=== PATIENT | female | born 1985 | race Caucasian/White ===

== ENCOUNTER 2024-05-25 11:10 | Emergency (ER) | payer OTHER, SELFPAY ==
[2024-05-25 11:13] VITALS: BP 160/110; PULSE 95; TEMP 36.8; O2SAT 100; BMI 25.3
--- NOTE | 2024-05-26 07:06 | ED_ITS ---
HPI HPI - General Adult General Chief complaint: Abdominal Pain Stated complaint: abdominal pain Source: patient Mode of arrival: walk-in Limitations: no limitations Related Data Home Medications ?Medication ?Instructions ?Recorded ?Confirmed alprazolam 0.5 mg tablet 0.5 mg PO BID PRN anxiety 05/25/24 05/25/24 promethazine 25 mg rectal 25 mg AR Q6H PRN nausea 05/25/24 05/25/24 suppository (Promethegan) tizanidine 4 mg tablet 4 mg PO TID 05/25/24 05/25/24 zolpidem 10 mg tablet (Ambien) 10 mg PO .hs 05/25/24 05/25/24 Previous Rx's ?Medication ?Instructions ?Recorded ibuprofen 800 mg tablet 800 mg PO Q8H PRN pain 14 days #40 05/25/24 tabs oxycodone-acetaminophen 5 mg-325 1 tab PO Q6H PRN pain 7 days #28 05/25/24 mg tablet (Percocet) tabs Allergies Allergy/AdvReac Type Severity Reaction Status Date / Time amoxicillin AdvReac Intermediate Unknown Verified 05/25/24 15:14 diphenhydramine (From AdvReac Intermediate Unknown Verified 05/25/24 15:14 Benadryl) levofloxacin (From Levaquin) AdvReac Intermediate Unknown Verified 05/25/24 15:14 metoclopramide (From Reglan) AdvReac Intermediate Unknown Verified 05/25/24 15:14 nalbuphine (From Nubain) AdvReac Intermediate hives Verified 05/25/24 15:14 prochlorperazine (From AdvReac Intermediate Unknown Verified 05/25/24 15:14 Compazine) tramadol AdvReac Intermediate hives and Verified 05/25/24 15:14 rash vancomycin AdvReac Intermediate Unknown Verified 05/25/24 15:14 ketorolac (From Toradol) AdvReac Mild hives Verified 05/25/24 15:14 meperidine (From Demerol) AdvReac Mild Hives Verified 05/25/24 15:14 Opioid HPI Opioid Management Most Recent Opioid Data: Last Pain Scale 8 05/26/24 06:23 05/26/24 Last Pain Assessment 05/26/24 06:00 Last MAR Pain Assessment 05/26/24 06:23 Last ORT Total Score 1 05/25/24 19:46 05/25/24 Last ORT Risk Category Low Risk 05/25/24 19:46 05/25/24 Ur Phencyclidine Scrn Negative (NEGATIVE) 05/25/24 14:31 05/08 11/29 [facility] Medical History (Updated 05/25/24 @ 19:35 by Myra La RN) Difficult intravenous access ?Z78.9 - Other specified health status (ICD-10) Varicella zoster ?B02.9 - Zoster without complications (ICD-10) Pancreatitis ?K85.90 - Acute pancreatitis without necrosis or infection, unspecified (ICD- 10) Ovarian cyst ?N83.209 - Unspecified ovarian cyst, unspecified side (ICD-10) Hypertension ?I10 - Essential (primary) hypertension (ICD-10) IBS (irritable bowel syndrome) ?K58.9 - Irritable bowel syndrome, unspecified (ICD-10) COVID-19 ?U07.1 - COVID-19 (ICD-10) Breast lump ?N63.0 - Unspecified lump in unspecified breast (ICD-10) Vitamin D deficiency ?E55.9 - Vitamin D deficiency, unspecified (ICD-10) Stress at home ?F43.9 - Reaction to severe stress, unspecified (ICD-10) Restless legs ?G25.81 - Restless legs syndrome (ICD-10) Plantar warts ?B07.0 - Plantar wart (ICD-10) Panic attacks ?F41.0 - Panic disorder [episodic paroxysmal anxiety] (ICD-10) Opioid abuse ?F11.10 - Opioid abuse, uncomplicated (ICD-10) Internal derangement of right knee ?M23.91 - Unspecified internal derangement of right knee (ICD-10) Internal derangement of left knee ?M23.92 - Unspecified internal derangement of left knee (ICD-10) Insomnia ?G47.00 - Insomnia, unspecified (ICD-10) GERD (gastroesophageal reflux disease) ?K21.9 - Gastro-esophageal reflux disease without esophagitis (ICD-10) Fear of flying ?F40.243 - Fear of flying (ICD-10) Epiploic appendagitis ?K63.89 - Other specified diseases of intestine (ICD-10) Depressive disorder ?F32.A - Depression, unspecified (ICD-10) Chronic pancreatitis ?K86.1 - Other chronic pancreatitis (ICD-10) Chronic headache ?R51.9 - Headache, unspecified (ICD-10) ?G89.29 - Other chronic pain (ICD-10) Chronic fatigue ?R53.82 - Chronic fatigue, unspecified (ICD-10) Chondromalacia of left patella ?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 - Chondromalacia patellae, left knee (ICD-10) Anxiety ?F41.9 - Anxiety disorder, unspecified (ICD-10) Abnormal liver function tests ?R79.89 - Other specified abnormal findings of blood chemistry (ICD-10) Surgical History (Updated 05/25/24 @ 14:30 by Myra La, CELSO) Hx of cholecystectomy ?Z90.49 - Acquired absence of other specified parts of digestive tract (ICD- 10) History of hysterectomy ?Z90.710 - Acquired absence of both cervix and uterus (ICD-10) Family History (Updated 05/25/24 @ 14:33 by Myra La, CELSO) Other Breast cancer Colon cancer Drug abuse FH: mental illness Family history of cancer Family history of diabetes mellitus Family history of hypertension Family history of stroke Ovarian cancer Raynaud disease Thyroid cancer Social History (Updated 05/25/24 @ 15:11 by Myra La, CELSO) Within the past year, how often did you have a drink containing alcohol: never Score interpretation: A score less than 3 is consistent with normal alcohol consumption. Do you use any of these nicotine containing products: vaping products Second hand tobacco smoke exposure: No Previous occupational history: unemployed Known occupational exposures/hazards: No Highest level of school completed/degree received: Associate degree: occupational, technical, vocational program Little interest or pleasure in doing things: not at all Feeling down, depressed, or hopeless: not at all Exam Constitutional Vital Signs, click to edit/add: Last Vital Signs Temp 98.2 F 05/25/24 11:13 Pulse 95 H 05/25/24 11:13 Resp 18 05/25/24 11:13 BP 160/110 H 05/25/24 11:13 Pulse Ox 100 05/25/24 11:13 Course Vital Signs Vital signs: Vital Signs Temperature 98.2 F 05/25/24 11:13 Pulse Rate 95 H 05/25/24 11:13 Respiratory Rate 18 05/25/24 11:13 Blood Pressure 160/110 H 05/25/24 11:13 Pulse Oximetry 100 05/25/24 11:13 Temperature 98.2 F 05/25/24 11:13 Pulse Rate 95 H 05/25/24 11:13 Respiratory Rate 18 05/25/24 11:13 Blood Pressure 160/110 H 05/25/24 11:13 Pulse Oximetry 100 05/25/24 11:13 Medical Decision Making MDM Narrative Medical decision making narrative: Patient left without being seen Discharge Plan Discharge Patient Disposition: Left Without Being Seen Discharge Date/Time: 05/25/24 13:00
== END 2024-05-25 13:00 | disposition left against medical advice (07) ==
PROVIDERS: Emergency Provider Student in an Organized Health Care Education/Training Program; PCP Nurse Practitioner Family
DX: Z53.21 Procedure and treatment not carried out due to patient leaving prior to being seen by health care provider (principal)

== ENCOUNTER 2024-05-25 19:30 | Observation (INO) | payer OTHER, SELFPAY ==
[2024-05-25] VITALS (20 sets, daily range): BP systolic 161–189; BP diastolic 103–133; PULSE 75–139; TEMP 36.4–36.9; O2SAT 95–100; BMI 22.8
--- NOTE | 2024-05-25 14:48 | ECG_ITS ---
[facility] Test Date: 2024-05-25 Pat Name: JANES BRITT Department: Room: - Gender: Female Tow Picker: : [id number] Requested By: ARTHUR LOPEZ Order Number: [id number] Reading MD: CALI ERVIN Measurements Intervals [place] Rate: 88 P: 7 DE: 144 QRS: 34 QRSD: 81 T: 8 QT: 347 QTc: 421 Interpretive Statements SINUS RHYTHM WITH SINUS ARRHYTHMIA WARNING: DATA QUALITY MAY AFFECT INTERPRETATION Compared to ECG 10/24/2020 19:51:43 Sinus tachycardia no longer present ST (T wave) deviation no longer present Electronically Signed On 05-26-2024 7:11:20 EST by CALI ERVIN
[2024-05-25 14:49] LABS: Basophils Percent Auto 0.5 % (0.2-2.0); Eosinophils Absolute Auto 0.3 10^3/uL (0.0-0.7); Hematocrit 44.5 % (36.0-48.0); Hemoglobin 14.9 g/dL (12.0-16.0); Immature Granulocytes Abs Auto 0.01 10^3/uL (0.00-0.03); Immature Granulocytes Pct Auto 0.2 % (0.0-0.5); Lymphocytes Absolute Auto 1.7 10^3/uL (1.2-3.8); Lymphocytes Percent Auto 29.6 % (20.5-60.0); Mean Corpuscular HGB Conc 33.5 g/dL (29.9-35.2); Mean Corpuscular Hemoglobin 31.6 pg (26.7-34.0); Mean Corpuscular Volume 94.5 fL (81.0-99.0); Mean Platelet Volume 9.6 fL (9.5-13.5); Monocytes Absolute Auto 0.4 10^3/uL (0.3-0.8); Monocytes Percent Auto 6.8 % (1.7-12.0); Neutrophils Absolute Auto 3.2 10^3/uL (1.4-6.5); Neutrophils Percent Auto 57.9 % (43.0-75.0); Platelet Count 401 10^3/uL (150-450); Red Blood Count 4.71 10^6/uL (4.20-5.40); Red Cell Distribution Width 13.6 % (11.0-15.0); White Blood Count 5.6 10^3/uL (4.0-11.0)
[2024-05-25 14:56] LABS: Amphetamine Screen Urine NEGATIVE (NEGATIVE); Barbiturates Screen Urine NEGATIVE (NEGATIVE); Benzodiazepines Screen Urine POSITIVE (NEGATIVE); Buprenorphine Screen Urine NEGATIVE (NEGATIVE); Cannabinoid Screen Urine NEGATIVE (NEGATIVE); Cocaine Screen Urine NEGATIVE (NEGATIVE); Methadone Screen Urine NEGATIVE (NEGATIVE); Methamphetamines Screen Urine NEGATIVE (NEGATIVE); Opiate Screen Urine NEGATIVE (NEGATIVE); Oxycodone Screen Urine POSITIVE (NEGATIVE); Phencyclidine Screen Urine NEGATIVE (NEGATIVE); Tricyclic Antidepressant Urine NEGATIVE (NEGATIVE)
[2024-05-25 15:17] LABS: HCG Quantitative 9 mIU/mL
[2024-05-25 15:19] LABS: Anion Gap 13.8; Chloride 106 mmol/L (98-107); Glucose 108 mg/dL (74-106); Potassium 3.8 mmol/L (3.5-5.1); Sodium 141 mmol/L (136-145)
[2024-05-25 15:20] LABS: BUN Creatinine Ratio 7.4; Calcium 10.1 mg/dL (8.5-10.1); Estimated GFR (African America >60 (>=60 mL/min/1.73m^2); Estimated GFR (Non-African Ame >60 (>=60 mL/min/1.73m^2)
[2024-05-25] MEDS: LACTATED RINGER'S SOLUTION 1,000 ML 50 ML IV (17:06)
--- NOTE | 2024-05-25 17:48 | PC.NURSE ---
1630- Attempted numerous time to place Peripheral IV without success. Patient tolerated attempts well. Jt Rae to attempt from [facility]. (1703) Right upper arm midline placed per Jt Rae x1 attempt without difficulty. See line placement charting.
--- NOTE | 2024-05-25 17:57 | P.ON_ITS ---
Brief Operative Note Date of procedure: 05/25/24 Pre-op diagnosis general: pelvic pain Post-op diagnosis: same as pre-op Procedure: NAME OF PROCEDURE: [diagnostic laparoscopy ] PROCEDURE: The patient was taken back to the Operating Room where she was placed in dorsal lithotomy position after given general anesthesia. The patient was prepped and draped in normal sterile fashion. A sponge stick was placed into the patient's vagina. Attention was turned to the patient's abdomen, where a small umbilical incision was made. The fascia was tented using Lucy clamps and the fascia was entered sharply. Confirmation of intraabdominal placement of the 10 mm port was confirmed under direct visualization using a laparoscope. The patient's abdomen was then insufflated using CO2 gas with approximately 4 liters. A second port was placed left laterally, this was done under direct visualization with a 5 mm port. Survey of the patient's abdomen demonstrated normal liver and gallbladder. Survey of the patient's pelvic anatomy demonstrated absent uterus, tubes and ovaries. No endometrial implants could be noted, no evidence of any pelvic disease was seen, normal appearing pelvic cavity. All instruments were removed from the patient's abdomen. The patient's abdomen was deinsufflated of CO2 gas. The patient tolerated the procedure well. Sponge stick was removed from the patient's vagina. The patient's infraumbilical fascia was closed using #0 Vicryl on a GI needle. The patient's skin was closed laterally and infraumbilically using 4-0 Vicryl. The patient tolerated the procedure well. Sponge, lap and needle counts were correct x 2. The patient was taken to Recovery Room in stable condition. Anesthesia: RADHAA Surgeon: Jad Butts Customer Support Associate: Filomena Hernandez Estimated blood loss (mL): 5 Pathology: none sent Condition: stable Disposition: PACU Urinary Catheter Management Urinary Catheter Management Urethral: Cath placed during this visit: no
[2024-05-25] MEDS: LACTATED RINGER'S SOLUTION 1,000 ML 150 ML IV (18:16)
--- NOTE | 2024-05-25 18:31 | PC.NURSE ---
Dr. Sanz aware of BP and is medicating.
[2024-05-25] MEDS: HYDROMORPHONE HCL 0.5 MG/0.5 ML SYRINGE IV (18:51)
[2024-05-25] MEDS: HYDROMORPHONE HCL 1 MG/ML CARTRIDGE IVP ×2 (21:01→23:51)
[2024-05-25] MEDS: LORAZEPAM 2 MG/ML VIAL 0.5 MG IV (21:03)
[2024-05-25] MEDS: LABETALOL HCL 20 MG/4 ML SYRINGE 10 MG IVP (21:05)
[2024-05-25] MEDS: ZOLPIDEM TARTRATE 10 MG TABLET PO (22:46)
[2024-05-25] MEDS: TIZANIDINE HCL 4 MG TABLET PO (22:46)
[2024-05-25] MEDS: OXYCODONE HCL/ACETAMINOPHEN 5MG/325MG 2 TAB PO (22:46)
[2024-05-25] MEDS: HYDRALAZINE HCL 20 MG/ML VIAL 10 MG IVP (23:31)
[2024-05-25] MEDS: PROMETHAZINE HCL 25 MG in 0.9 % SODIUM CHLORIDE 50 ML 204 MG IV (23:51)
[2024-05-26] VITALS (9 sets, daily range): BP systolic 90–101; BP diastolic 52–65; PULSE 63–110; TEMP 36.8; O2SAT 94–96
[2024-05-26] MEDS: TIZANIDINE HCL 4 MG TABLET PO (06:23)
[2024-05-26] MEDS: HYDROMORPHONE HCL 1 MG/ML CARTRIDGE IVP (06:23)
[2024-05-26 07:07] LABS: Hematocrit 36.6 % (36.0-48.0); Hemoglobin 12.2 g/dL (12.0-16.0); Mean Corpuscular HGB Conc 33.3 g/dL (29.9-35.2); Mean Corpuscular Hemoglobin 31.5 pg (26.7-34.0); Mean Corpuscular Volume 94.6 fL (81.0-99.0); Mean Platelet Volume 9.3 fL (9.5-13.5); Platelet Count 387 10^3/uL (150-450); Red Blood Count 3.87 10^6/uL (4.20-5.40); Red Cell Distribution Width 13.9 % (11.0-15.0)
[2024-05-26 07:22] LABS: Alanine Aminotransferase 26 U/L (14-59); Albumin Globulin Ratio 1.1; Albumin Level 3.7 g/dL (3.4-5.0); Alkaline Phosphatase 106 U/L (46-116); Anion Gap 18.6; Aspartate Amino Transferase 25 U/L (15-37); BUN Creatinine Ratio 8.7; Bilirubin Total 0.8 mg/dL (0.2-1.0); Calcium 9.5 mg/dL (8.5-10.1); Carbon Dioxide 24.5 mmol/L (21.0-32.0); Chloride 102 mmol/L (98-107); Estimated GFR (African America >60 (>=60 mL/min/1.73m^2); Estimated GFR (Non-African Ame 60 (>=60 mL/min/1.73m^2); Globulin 3.4 g/dL; Glucose 116 mg/dL (74-106); Potassium 4.1 mmol/L (3.5-5.1); Sodium 141 mmol/L (136-145); Total Protein 7.1 g/dL (6.4-8.2)
[2024-05-26 07:38] LABS: Monocytes Absolute Manual 1.12 10^3/uL (0.30-0.80); Segmented Neut Absolute Manual 5.28 10^3/uL (1.4-6.5)
--- NOTE | 2024-05-26 09:55 | P.GYNPN_ITS ---
[employer] CONSULTANT - PN: Subj Post-Op Subjective: patient reports feeling better and patient has no complaints Exam Constitutional Vital Signs, click to edit/add: Last Vital Signs Temp 98.3 F 05/26/24 08:25 Pulse 68 05/26/24 08:25 Resp 16 05/26/24 08:25 BP 90/52 05/26/24 08:25 Pulse Ox 95 05/26/24 08:25 O2 Del Method Room Air 05/26/24 08:25 Documenting provider has reviewed patient's vital signs: yes Common normals: no apparent distress Cardio Common normals: regular rate and regular rhythm GI Common normals: Normal to inspection, nondistended, normoactive bowel sounds present Extremity Common normals: no clubbing, cyanosis or edema and no calf tenderness Results Labs Labs: Short CBC 05/25/24 05/26/24 Range/Units 14:34 06:33 WBC 5.6 8.0 (4.0-11.0) 10^3/uL Hgb 14.9 12.2 (12.0-16.0) g/dL Hct 44.5 36.6 (36.0-48.0) % Plt Count 401 387 (150-450) 10^3/uL BMP 05/25/24 05/26/24 14:34 06:33 Sodium 141 141 Potassium 3.8 4.1 Chloride 106 102 Carbon Dioxide 25.0 24.5 BUN 6.0 L 9.0 Creatinine 0.81 1.04 H Glucose 108 H 116 H Calcium 10.1 9.5 Liver Function 05/26/24 Range/Units 06:33 Total Bilirubin 0.8 (0.2-1.0) mg/dL AST 25 (15-37) U/L ALT 26 (14-59) U/L Alkaline Phosphatase 106 (46-116) U/L Albumin 3.7 (3.4-5.0) g/dL [employer] CONSULTANT - A/P Assessment and Plan (1) Elevated BP without diagnosis of hypertension: Postoperative Procedures: Procedures Operation Date: 05/25/24 15:00 Actual Procedure Side Surgeon p Diagnostic laparoscopy Not Applicable Jad Butts DO Postoperative day: 1 Postoperative status EN[employer] PL[employer]ING CONSULTANT: doing well Post-operative plan EN[employer] PL[employer] CONSULTANT: routine post-op care and discharge Fall Risk Details Page fall scale risk level: Low Fall Risk Current medications: Current Medications Al Hydroxide/Mg Hydroxide (Magnesium Hydroxide 2,400 Mg/10 Ml Oral.Susp) 2,400 mg PO ONCE ONE Stop: 05/26/24 09:53 Alprazolam (Alprazolam 0.5 Mg Tablet) 0.5 mg PO BID PRN PRN Reason: anxiety Hydralazine HCl (Hydralazine Hcl 20 Mg/Ml Vial) 10 mg IVP Q4H PRN PRN Reason: Hypertension Last Admin: 05/25/24 23:31 Dose: 10 mg Hydromorphone HCl (Hydromorphone Hcl 0.5 Mg/0.5 Ml Syringe) 0.5 mg IVP Q6H PRN PRN Reason: Breakthrough Pain Oxycodone/Acetaminophen (Oxycodone Hcl/Acetaminophen 5mg/325mg) 2 tab PO Q4H PRN PRN Reason: Pain 6-10 Last Admin: 05/25/24 22:46 Dose: 2 tab Promethazine HCl (Promethazine Hcl 25 Mg Supp.Rect) 25 mg DC Q6H PRN PRN Reason: nausea, vomiting Tizanidine HCl (Tizanidine Hcl 4 Mg Tablet) 4 mg PO TID [facility] Last Admin: 05/26/24 06:23 Dose: 4 mg Zolpidem Tartrate (Zolpidem Tartrate 10 Mg Tablet) 10 mg PO QHS [facility] Last Admin: 05/25/24 22:46 Dose: 10 mg Time Spent With Patient Time: Total time spent is greater than 50% in coordination of care (as documented) at patient's floor/unit and/or counseling patient: Time with patient: less than 15 minutes Urinary Catheter Management Urinary Catheter Management Urethral: Cath placed during this visit: no
[2024-05-26] MEDS: ONDANSETRON PF 4 MG/2 ML VIAL IV (10:26)
[2024-05-26] MEDS: OXYCODONE HCL/ACETAMINOPHEN 5MG/325MG 2 TAB PO (10:26)
[2024-05-26] MEDS: MAGNESIUM HYDROXIDE 2,400 MG/10 ML ORAL.SUSP 2400 MG PO (10:26)
--- NOTE | 2024-05-26 10:37 | PM.HP ---
HPI H&P: HPI History of Present Illness Chief complaint: Poorly controlled blood pressure Narrative: HPI and Hospital course 38-year-old female with no prior history of essential hypertension had diagnostic laparoscopy for ongoing/unexplained pelvic pain. Postoperatively, patient had poorly controlled anxiety, pain along with blood pressure that met the criteria for hypertensive urgency with blood pressure as high as 180/120. Patient was admitted for observation postoperatively to treat her blood pressure, pain and anxiety. She received combination of IV hydralazine and labetalol as needed. Her postoperative pain was treated with combination of oral oxy and IV Dilaudid. She was seen earlier today was still complaining of mild abdominal pain along with nausea. However her blood pressure was well-controlled. She denies any prior history of essential hypertension. She was seen by WAREHOUSE INSULATION WORKER and is stable for discharge from surgical point of view. Discussed with patient that she should monitor her blood pressure at home and bring her blood pressure log to her PCP to determine if she has underlying/undiagnosed essential hypertension. Patient is medically stable for discharge. She will need to follow-up with PCP and WAREHOUSE INSULATION WORKER. Opioid HPI Opioid Management Most Recent Pain and Opioid Data: Last Pain Scale 7 05/26/24 10:26 05/26/24 Last Pain Assessment 05/26/24 10:09 Last MAR Pain Assessment 05/26/24 10:26 Last ORT Total Score 1 05/25/24 19:46 05/25/24 Last ORT Risk Category Low Risk 05/25/24 19:46 05/25/24 Ur Phencyclidine Scrn Negative (NEGATIVE) 05/25/24 14:31 05/25/24 Review of Systems ROS Status of ROS 10 or more systems reviewed and unremarkable except as noted in history and below [facility] Medical History (Updated 05/26/24 @ 10:44 by Shaikh Korina MD) Difficult intravenous access ?Z78.9 - Other specified health status (ICD-10) Varicella zoster ?B02.9 - Zoster without complications (ICD-10) Pancreatitis ?K85.90 - Acute pancreatitis without necrosis or infection, unspecified (ICD-10) Ovarian cyst ?N83.209 - Unspecified ovarian cyst, unspecified side (ICD-10) Hypertension ?I10 - Essential (primary) hypertension (ICD-10) IBS (irritable bowel syndrome) ?K58.9 - Irritable bowel syndrome, unspecified (ICD-10) COVID-19 ?U07.1 - COVID-19 (ICD-10) Breast lump ?N63.0 - Unspecified lump in unspecified breast (ICD-10) Vitamin D deficiency ?E55.9 - Vitamin D deficiency, unspecified (ICD-10) Stress at home ?F43.9 - Reaction to severe stress, unspecified (ICD-10) Restless legs ?G25.81 - Restless legs syndrome (ICD-10) Plantar warts ?B07.0 - Plantar wart (ICD-10) Panic attacks ?F41.0 - Panic disorder [episodic paroxysmal anxiety] (ICD-10) Opioid abuse ?F11.10 - Opioid abuse, uncomplicated (ICD-10) Internal derangement of right knee ?M23.91 - Unspecified internal derangement of right knee (ICD-10) Internal derangement of left knee ?M23.92 - Unspecified internal derangement of left knee (ICD-10) Insomnia ?G47.00 - Insomnia, unspecified (ICD-10) GERD (gastroesophageal reflux disease) ?K21.9 - Gastro-esophageal reflux disease without esophagitis (ICD-10) Fear of flying ?F40.243 - Fear of flying (ICD-10) Epiploic appendagitis ?K63.89 - Other specified diseases of intestine (ICD-10) Depressive disorder ?F32.A - Depression, unspecified (ICD-10) Chronic pancreatitis ?K86.1 - Other chronic pancreatitis (ICD-10) Chronic headache ?R51.9 - Headache, unspecified (ICD-10) ?G89.29 - Other chronic pain (ICD-10) Chronic fatigue ?R53.82 - Chronic fatigue, unspecified (ICD-10) Chondromalacia of left patella ?M22.42 - Chondromalacia patellae, left knee (ICD-10) Anxiety ?F41.9 - Anxiety disorder, unspecified (ICD-10) Abnormal liver function tests ?R79.89 - Other specified abnormal findings of blood chemistry (ICD-10) Surgical History (Updated 05/25/24 @ 14:30 by Myra La RN) Hx of cholecystectomy ?Z90.49 - Acquired absence of other specified parts of digestive tract (ICD-10) History of hysterectomy ?Z90.710 - Acquired absence of both cervix and uterus (ICD-10) Family History (Updated 05/25/24 @ 14:33 by Myar La RN) Other Breast cancer Colon cancer Drug abuse FH: mental illness Family history of cancer Family history of diabetes mellitus Family history of hypertension Family history of stroke Ovarian cancer Raynaud disease Thyroid cancer Social History (Updated 05/25/24 @ 15:11 by Myra La, RN) Within the past year, how often did you have a drink containing alcohol: never Score interpretation: A score less than 3 is consistent with normal alcohol consumption. Do you use any of these nicotine containing products: vaping products Second hand tobacco smoke exposure: No Previous occupational history: unemployed Known occupational exposures/hazards: No Highest level of school completed/degree received: Associate degree: occupational, technical, vocational program Little interest or pleasure in doing things: not at all Feeling down, depressed, or hopeless: not at all Meds Home Medications and Allergies Home Medications ?Medication ?Instructions ?Recorded ?Confirmed ?Type alprazolam 0.5 mg tablet 0.5 mg PO BID PRN anxiety 05/25/24 05/25/24 History ibuprofen 800 mg tablet 800 mg PO Q8H PRN pain 14 days #40 05/25/24 Rx tabs oxycodone-acetaminophen 5 mg-325 1 tab PO Q6H PRN pain 7 days #28 05/25/24 Rx mg tablet (Percocet) tabs promethazine 25 mg rectal 25 mg [place] Q6H PRN nausea 05/25/24 05/25/24 History suppository (Promethegan) tizanidine 4 mg tablet 4 mg PO TID 05/25/24 05/25/24 History zolpidem 10 mg tablet (Ambien) 10 mg PO .hs 05/25/24 05/25/24 History bisacodyl 10 mg rectal suppository 10 mg [place] DAILY PRN constipation #4 05/26/24 Rx (Dulcolax (bisacodyl)) ea Allergies Allergy/AdvReac Type Severity Reaction Status Date / Time amoxicillin AdvReac Intermediate Unknown Verified 05/25/24 15:14 diphenhydramine (From AdvReac Intermediate Unknown Verified 05/25/24 15:14 Benadryl) levofloxacin (From Levaquin) AdvReac Intermediate Unknown Verified 05/25/24 15:14 metoclopramide (From Reglan) AdvReac Intermediate Unknown Verified 05/25/24 15:14 nalbuphine (From Nubain) AdvReac Intermediate hives Verified 05/25/24 15:14 prochlorperazine (From AdvReac Intermediate Unknown Verified 05/25/24 15:14 Compazine) tramadol AdvReac Intermediate hives and Verified 05/25/24 15:14 rash vancomycin AdvReac Intermediate Unknown Verified 05/25/24 15:14 ketorolac (From Toradol) AdvReac Mild hives Verified 05/25/24 15:14 meperidine (From Demerol) AdvReac Mild Hives Verified 05/25/24 15:14 Exam Constitutional Vital Signs, click to edit/add: Last Vital Signs Temp 98.3 F 05/26/24 08:25 Pulse 69 05/26/24 10:00 Resp 16 05/26/24 08:25 BP 90/52 05/26/24 08:25 Pulse Ox 96 05/26/24 10:00 O2 Del Method Room Air 05/26/24 08:25 Documenting provider has reviewed patient's vital signs: yes Common normals: no apparent distress and oriented x3 General appearance: cooperative Respiratory Common normals: normal respiratory effort and clear to auscultation bilaterally Effort & inspection: able to speak in complete sentences Auscultation: clear to auscultation bilaterally Cardio Common normals: regular rate, S1 normal heart sound and S2 normal heart sound Rate: regular rate Heart sounds: S1 normal and S2 normal Neuro Common normals: oriented x3, moves all extremities and no focal motor deficits Psych Common normals: mental status grossly normal, denies hallucinations, denies homicidal ideation and denies suicidal ideation Results Labs Labs: Short CBC 05/25/24 05/26/24 Range/Units 14:34 06:33 WBC 5.6 8.0 (4.0-11.0) 10^3/uL Hgb 14.9 12.2 (12.0-16.0) g/dL Hct 44.5 36.6 (36.0-48.0) % Plt Count 401 387 (150-450) 10^3/uL BMP 05/25/24 05/26/24 14:34 06:33 Sodium 141 141 Potassium 3.8 4.1 Chloride 106 102 Carbon Dioxide 25.0 24.5 BUN 6.0 L 9.0 Creatinine 0.81 1.04 H Glucose 108 H 116 H Calcium 10.1 9.5 Liver Function 05/26/24 Range/Units 06:33 Total Bilirubin 0.8 (0.2-1.0) mg/dL AST 25 (15-37) U/L ALT 26 (14-59) U/L Alkaline Phosphatase 106 (46-116) U/L Albumin 3.7 (3.4-5.0) g/dL Assessment and Plan Assessment and Plan (1) Hypertensive urgency: (2) Abdominal pain: Qualifiers: Abdominal location: generalized Qualified Code(s): R10.84 - Generalized abdominal pain (3) Post-operative pain: Plan Patient's blood pressure is now at goal. Her pain is reasonably controlled. It seems like her pelvic pain was secondary to constipation. Patient started on bowel regimen to help with constipation. Patient is medically stable for discharge and will need follow-up with PCP and WAREHOUSE INSULATION WORKER as outpatient. Urinary Catheter Management Urinary Catheter Management Urethral: Cath placed during this visit: no
--- NOTE | 2024-05-27 12:50 | CM.DCFOLLOWU ---
1st attempt 05/27/24, no answer
--- NOTE | 2024-05-28 15:22 | CM.DCFOLLOWU ---
Person spoke with:patient How are you feeling?well How is your pain? had allergic reaction to where the tape was on here, likely returning to ED to get checked out Did you understand your discharge instructions? yes Do you have any questions about your discharge instructions?no Were you given any prescriptions at discharge?yes Were you able to get your prescriptions filled?yes Do you understand how to take your medications as ordered? yes Do you have any questions about your follow up appointment and do you plan to keep your follow up appointment? no questions, reviewed follow ups Is there anything else that you would like to discuss?no Questions/Comments/Concerns/Other:none
== END 2024-05-26 13:35 | disposition home or self-care (01) ==
LOC: MS 19:44 → SURGOUT 05-26 07:35 → MS 05-26 07:35
PROVIDERS: Anesthesiology; Registered Nurse; Admitting Provider Obstetrics & Gynecology; PCP Nurse Practitioner Family; Visit Provider Obstetrics & Gynecology
PROC: (CPT 840; principal; 2024-05-25 15:00)
DX: R10.2 Pelvic and perineal pain (principal); N80.9 Endometriosis, unspecified; N94.10 Unspecified dyspareunia; R10.84 Generalized abdominal pain; I16.0 Hypertensive urgency; Z90.49 Acquired absence of other specified parts of digestive tract; Z90.710 Acquired absence of both cervix and uterus; Z98.51 Tubal ligation status; F41.9 Anxiety disorder, unspecified; R11.0 Nausea; F17.290 Nicotine dependence, other tobacco product, uncomplicated; G89.18 Other acute postprocedural pain; K59.00 Constipation, unspecified
CPT/HCPCS: 49320; 36410; 36415; 80048; 80053; 80307; 84702; 85007; 85025; 85027; 93005; 96374; 96375; C1887; G0378; J0360; J1171; J1920; J2060; J2405; J2550